=== PATIENT | male | born 1970 | race Caucasian/White ===

== ENCOUNTER → 2020-04-22 13:00 | Outpatient (BNVA) | payer BC, SELFPAY | PROVIDERS: PCP Internal Medicine; Referring Provider Internal Medicine; Visit Provider Internal Medicine Cardiovascular Disease | DX: I48.20 Chronic atrial fibrillation, unspecified (principal); E11.9 Type 2 diabetes mellitus without complications; Z79.01 Long term (current) use of anticoagulants; Z79.4 Long term (current) use of insulin; Z79.899 Other long term (current) drug therapy | CPT/HCPCS: 99212 ==

== ENCOUNTER → 2020-12-08 13:07 | Outpatient (BNVA) | payer BC, SELFPAY | PROVIDERS: PCP Internal Medicine; Referring Provider Internal Medicine; Visit Provider Internal Medicine Cardiovascular Disease | DX: I48.20 Chronic atrial fibrillation, unspecified (principal); R06.02 Shortness of breath | CPT/HCPCS: 93005 ==

== ENCOUNTER → 2021-05-27 14:56 | Outpatient (REF) | payer BC, SELFPAY ==
--- NOTE | 2021-05-27 14:59 | CA_ITS ---
Transthoracic Echocardiogram Patient (Last, First, Middle): Brandon Garcia, Gender: Male Date of : 1970 Age: 51 Procedure Date: 05/27/2021 Procedure Type: Transthoracic Echocardiogram Location: OP Height: 187.96 cm Weight: 127.01 kg BSA: 2.51 m2 Heart Rate: bpm BP: 130 / 80 mmHg Assembler Seat: SHELLIE Bush MD: Joe Stack MD Security Coordinator: Joe Stack MD Symptoms: I48.20 - Chronic atrial fibrillation, unspecified Study Quality: Fair/Contrast ECG Rhythm: Atrial Fibrillation Conclusions: - 1. Normal LV systolic function 2. At least mild left atrial enlargement 3. Limited visualization of cardiac valves with normal cardiac valvular Doppler 4. Normal RV systolic pressure 5. No pericardial effusion Findings Procedure Information Contrast agent, definity, is being given per protocol without apparent complications. Left Ventricle Normal left ventricular cavity size. There is normal left ventricular wall thickness. The left ventricular systolic function is normal. The visually estimated ejection fraction is between 55-60%. There is no evidence of regional wall motion abnormalities. Diastolic function is indeterminate on the basis of available data. Right Ventricle The right ventricle was not well visualized. Atria The left atrium is mildly dilated. There is lipomatous hypertrophy of the interatrial septum. There is no evidence of interatrial shunt. The right atrium was not well visualized. Aortic Valve The aortic valve structure and function is likely normal. There is no aortic valve stenosis. There is no aortic valve regurgitation. Mitral Valve The mitral valve was not well visualized. There is no mitral valve regurgitation. There is no mitral valve stenosis. Pulmonic Valve The pulmonic valve was not well visualized. Tricuspid Valve Likely normal tricuspid valve structure and function. There is trace tricuspid valve regurgitation. The right ventricular systolic pressure is normal. The right ventricular systolic pressure is 19 mmHg. Normal right atrial pressure. Great Vessels All visible segments of the aorta are normal in size. The pulmonary artery was not well visualized. Venous The inferior vena cava is normal in size. Pericardium/Pleural There is no evidence of pericardial effusion. Prior Study Comparison No significant change compared to prior study dated: 08/17/2019. Measurements 2D Linear Measurements IVSd: 1.14 0.6-0.9/0.6-1.0 cm LVIDd: 4.89 3.9-5.3/4.2-5.9 cm LVIDd Index: 1.95 2.4-3.2/2.2-3.1 cm/m2 LVIDs: 3.06 2.0-3.6 cm LVPWd: 1.12 0.7-1.1 cm Ao Root: 4.10 2.1-3.5 cm LA Diam: 4.00 2.7-3.8/3.0-4.0 cm LAIDs Index: 1.59 1.5-2.3 cm/m2 LV Mass: 258.54 67-162/88-224 g LV Mass Index: 103.00 43-95/49-115 g/m2 LVOT Diam: 2.20 3.0+(-)1.3 cm 2D Systolic Function EF 4C: 55.50 >55% EF 2C: 50.20 >55% Aortic Valve AoV Pk Yogi: 1.18 AoV Mn Yogi: 0.85 AoV VTI: 0.23 AoV Pk Grad: 6.00 Aov Mn Grad: 3.00 PRATEEK Cont.VTI: 2.57 LVOT LVOT Pk Yogi: 0.78 LVOT Mn Yogi: 0.50 LVOT VTI: 0.16 LVOT Pk Grad: 2.00 LVOT Mn Grad: 1.00 LVOT Diam: 2.20 LVOT Area: 3.80 Right Ventricle TAPSE (mm): 1.80 TVS' Yogi: 11.00 Tricuspid Valve TR Pk Yogi: 2.02 TR Pk Grad: 16.00 RA Press: 3.00 RVSP: 19.00 Great Vessels Aorta Ao Root-2D: 4.10 2.0-3.7 cm Ao Asc: 3.40 2.1-3.4 cm Ao Arch: 3.30 Updated in Other Vendor System with Status of Final Joe Stack MD electronically signed on 05/28/2021 3:35:14 PM with status of Final
== END ==
LOC: HO.CARD 14:56
PROVIDERS: PCP Internal Medicine; Visit Provider Internal Medicine Cardiovascular Disease
DX: I48.20 Chronic atrial fibrillation, unspecified (principal)
CPT/HCPCS: 93306; Q9957

== ENCOUNTER → 2021-06-28 15:08 | Outpatient (BNVA) | payer BC, SELFPAY | PROVIDERS: PCP Internal Medicine; Visit Provider Internal Medicine Cardiovascular Disease ==

== ENCOUNTER 2022-06-21 10:10 | Outpatient (REF) | payer BC, SELFPAY ==
[2022-06-21 12:08] LABS: Anion Gap 16 (12-20); Blood Urea Nitrogen 18 mg/dL (9-16); Calcium 9.7 mg/dL (8.4-10.2); Carbon Dioxide 21 mmol/L (22-29); Chloride 106 mmol/L (96-108); Estimated Glomerular Filt Rate > 60; Glucose Random 205 mg/dL (60-115); Potassium 4.7 mmol/L (3.3-5.1); Sodium 138 mmol/L (135-145)
[2022-06-21 12:41] LABS: Digoxin 0.2 ng/mL (0.8-2.0)
== END 2022-06-21 10:11 | disposition home or self-care (01) ==
LOC: HO.LAB 10:10
PROVIDERS: Visit Provider Nurse Practitioner Family
DX: I48.20 Chronic atrial fibrillation, unspecified (principal)
CPT/HCPCS: 36415; 80048; 80162

== ENCOUNTER → 2022-06-27 15:10 | Outpatient (BNVA) | payer BC, SELFPAY | PROVIDERS: PCP Internal Medicine; Referring Provider Internal Medicine; Visit Provider Internal Medicine Cardiovascular Disease | DX: I48.20 Chronic atrial fibrillation, unspecified (principal); R06.02 Shortness of breath | CPT/HCPCS: 93005 ==

== ENCOUNTER 2023-06-26 15:03 | Outpatient (REF) | payer BC, SELFPAY ==
[2023-06-26 17:15] LABS: Digoxin 0.4 ng/mL (0.8-2.0)
== END 2023-06-26 15:04 | disposition home or self-care (01) ==
LOC: HO.LAB 15:03
PROVIDERS: Visit Provider Internal Medicine Cardiovascular Disease
DX: I48.20 Chronic atrial fibrillation, unspecified (principal); Z79.899 Other long term (current) drug therapy
CPT/HCPCS: 36415; 80162; 93005

== ENCOUNTER 2023-06-26 15:03 | Outpatient (AMB) | payer BC, SELFPAY ==
--- NOTE | 2023-06-26 15:13 | A.OFFVIS_ITS ---
Intake Vital Signs 06/26/23 15:14 Height 6 ft 2 in Weight 319 lb 10.724 oz BMI 41.0 BP 120/70 Blood Pressure Location Lt brachial Position Sitting Pulse 109 H Intake Visit Reasons: 1Y follow up Intake Note: 1 year follow-up with ekg feeling good c/o fatigue Machine Clipper Required: No Passenger Screener: Passenger Screener Present Accompanied by: Spouse Allergies No Known Allergies Allergy (Verified 04/22/20 13:01) Medication List - Last Reconciled 06/26/23 by Joe Stack MD acetaminophen (Tylenol) 650 mg PO Q6H PRN cholecalciferol (vitamin D3) 50 mcg PO DAILY digoxin 250 mcg PO DAILY insulin aspart U-100 subcut insulin lispro (Humalog U-100 Insulin) 180 units subcut DAILY lisinopril 5 mg PO DAILY metoprolol tartrate 100 mg PO BID 90 days multivitamin 1 tab PO DAILY rivaroxaban (Xarelto) 20 mg PO DAILY rosuvastatin 5 mg PO DAILY tirzepatide (Mounjaro) 2.5 mg subcut QWEEK HPI HPI Comments History of Present Illness Details Brandon comes for follow-up. He has been doing well from cardiac perspective. He is feet and chronic wounds in his feet find any he will but he was laid up for 2 years. He has currently not working. He does have exertional shortness of breath but denies any orthopnea, PND, leg edema, abdominal distension. Denies any lightheadedness, syncope. Denies any rapid heart rate or palpitations. No exertional chest pain. Takes all his medications. No bleeding issues or neurologic events [facility] Medical History Chronic atrial fibrillation Diabetes mellitus COY (obstructive sleep apnea) Family History Father Afib Mother No problems noted. Maternal Grandfather Afib Review of Systems Const Denies chills, Denies fatigue, Denies fever(s), Denies frequent falls, Denies weakness, Denies weight gain and Denies weight loss ENT Denies dizziness Card Denies chest pain, Denies leg edema, Denies lightheadedness, Denies palpitations, Denies dyspnea, Denies dyspnea on exertion, Denies orthopnea and Denies other (loss of consciousness) Resp Denies cough, Denies dyspnea and Denies dyspnea on exertion GI Denies hematochezia and Denies change in stool character Musc Denies abnormal gait, Denies muscle weakness, Denies numbness, Denies radiating pain into limb and Denies tingling Neuro Denies abnormal gait, Denies dizziness, Denies frequent falls, Denies numbness, Denies tingling and Denies weakness Endo Denies fatigue and Denies palpitations Physical Exam Vital Signs: Last Vital Signs Pulse 109 H 06/26/23 15:14 BP 120/70 06/26/23 15:14 BMI result Body Mass Index 41.0 Const General: cooperative, comfortable, no acute distress, alert and awake Nutritional Appearance: obese morbidly obese Orientation/consciousness: patient oriented x3 Limitations: no limitations Neck Neck: Yes trachea midline, Yes supple and Yes no JVD Resp Effort & Inspection: normal respiratory effort Auscultation: clear to auscultation bilaterally Cardio Jugular venous distension: no JVD Palpation: normal PMI Rate: regular rate Rhythm: abnormal rhythm irregularly irregular Heart sounds: S1 normal heart sound present and S2 normal heart sound present GI Auscultation: normal bowel sounds Skin General skin exam: no rashes or lesions noted Neuro General: patient oriented x3 and no focal motor deficits Extrem General: Yes no clubbing, cyanosis or edema Psych Appearance: grossly normal Office Procedures EKG Details: EKG shows atrial fibrillation with rapid ventricular response 109 beats per minute right bundle-branch block, unchanged. 53555-[id number], Complete Assessment & Plan Assessment & Plan (1) Chronic atrial fibrillation: Code(s): I48.20 - Chronic atrial fibrillation, unspecified Plan: Chronic atrial fibrillation with slightly rapid rate today. Although after settling down his heart rate was in the 90s when I examined him. He has no signs or symptoms of heart failure. Complains of exertional shortness of breath which is most likely related to deconditioning from last 2 years of not working out. However will request an echocardiogram to rule out any cardiomyopathic process. No signs or symptoms of heart failure. Continue current dual rate control with digoxin and metoprolol. Will pursue digoxin assay today. Continue full oral anticoagulation, currently on Xarelto 20 mg daily. Semi annual renal function test should be pursued. Continue CPAP therapy. Continue participate in weight loss program regular physical activity. Will follow up in the clinic in 1 year's time, sooner p.r.n.. Thank you for allowing me to partake in his care Coding Level of Care Code Est Pt Level 4 (06095) Diagnoses Chronic atrial fibrillation I48.20 CPT Codes EKG - CPT: 56069-[id number], Complete ([id number])
[2023-06-26 15:14] VITALS: BP 120/70; PULSE 109; BMI 41.0
== END 2023-06-26 15:47 | disposition home or self-care (01) ==
PROVIDERS: Visit Provider Internal Medicine Cardiovascular Disease
DX: I48.20 Chronic atrial fibrillation, unspecified (principal)
CPT/HCPCS: 93010; 99214

== ENCOUNTER → 2023-07-10 15:52 | Outpatient (REF) | payer BC, SELFPAY ==
--- NOTE | 2023-07-10 15:55 | CA_ITS ---
Transthoracic Echocardiogram Patient (Last, First, Middle): Brandon Garcia, Gender: Male Date of : 1970 Age: 53 Procedure Date: 07/10/2023 Procedure Type: Transthoracic Echocardiogram Location: OP Height: 187.96 cm Weight: 140.62 kg BSA: 2.62 m2 Heart Rate: bpm BP: 112 / 64 mmHg Ob Gyn: ROSELIA Referring MD: Joe Stack MD Symptoms: R06.02 - Shortness of breath Study Quality: Technically Difficult, contrast Conclusions: - 1. Normal LV ejection fraction 55-60% with mild LVH 2. Limited visualization cardiac valves with normal cardiac valvular Doppler 3. Normal measured RV systolic pressure Findings Procedure Information Contrast agent, definity, is being given per protocol without apparent complications. Left Ventricle Normal left ventricular size and systolic function. There is mildly increased left ventricular wall thickness. The visually estimated ejection fraction is between 55-60%. Diastolic function is indeterminate on the basis of available data. Right Ventricle The right ventricle was not well visualized. Atria The left atrium is likely dilated. Interatrial shunt cannot be excluded. The right atrium was not well visualized. Aortic Valve The aortic valve structure and function is likely normal. There is no aortic valve stenosis. There is no aortic valve regurgitation. Mitral Valve The mitral valve was not well visualized. There is trace mitral valve regurgitation. There is no mitral valve stenosis. Pulmonic Valve The pulmonic valve was not well visualized. Tricuspid Valve The tricuspid valve was not well visualized. There is trace tricuspid valve regurgitation. The right ventricular systolic pressure is normal. The right ventricular systolic pressure is 24 mmHg. Normal right atrial pressure. Great Vessels The pulmonary artery was not well visualized. Venous The inferior vena cava is normal in size. Pericardium/Pleural The pericardium was not well visualized. Prior Study Comparison No significant change compared to prior study dated: 05/27/2021. delay in reporting due to technical issues Measurements 2D Linear Measurements IVSd: 1.22 0.6-0.9/0.6-1.0 cm LVIDd: 4.75 3.9-5.3/4.2-5.9 cm LVIDd Index: 1.81 2.4-3.2/2.2-3.1 cm/m2 LVIDs: 3.40 2.0-3.6 cm LVPWd: 1.11 0.7-1.1 cm LA Diam: 4.00 2.7-3.8/3.0-4.0 cm LAIDs Index: 1.53 1.5-2.3 cm/m2 LV Mass: 257.63 67-162/88-224 g LV Mass Index: 98.33 43-95/49-115 g/m2 LVOT Diam: 2.20 3.0+(-)1.3 cm 2D Systolic Function EF 4C: 48.40 >55% EF 2C: 65.30 >55% EF BiP: 57.70 >55% Mitral Valve MV Pk E: 1.24 MV Decel Time: 210.00 E'Lateral: 11.20 E'Medial: 8.88 E/E' Med: 14.00 E/E' Lat: 11.10 PHT: 61.00 MVA PHT: 3.61 Decel Jones: 5.91 Aortic Valve AoV Pk Yogi: 1.01 AoV Pk Grad: 4.00 LVOT LVOT Pk Yogi: 0.91 LVOT Pk Grad: 3.00 LVOT Diam: 2.20 LVOT Area: 3.80 Diastolic Function MV Pk E: 1.24 E'Medial: 8.88 E/E' Med: 14.00 E' Laterial: 11.20 E/E' Lat: 11.10 Right Ventricle TAPSE (mm): 15.10 TVS' Yogi: 8.40 Tricuspid Valve TR Pk Yogi: 2.29 TR Pk Grad: 21.00 RA Press: 3.00 RVSP: 24.00 Great Vessels Aorta Sinus of Valsalva: 4.03 2.0-3.[address] [place]: 3.02 1.7-3.4 cm Ao Asc: 3.50 2.1-3.4 cm Updated in Other Vendor System with Status of Final Joe Stack MD electronically signed on 07/13/2023 1:46:49 PM with status of Final
== END ==
LOC: HO.CARD 15:52
PROVIDERS: PCP Internal Medicine; Visit Provider Internal Medicine Cardiovascular Disease
DX: R06.02 Shortness of breath (principal)
CPT/HCPCS: 93306; Q9957

== ENCOUNTER → 2023-07-10 15:55 | Outpatient (BNV) | payer BC, SELFPAY | PROVIDERS: PCP Internal Medicine; Visit Provider Internal Medicine Cardiovascular Disease | DX: I48.20 Chronic atrial fibrillation, unspecified (principal); R94.31 Abnormal electrocardiogram [ECG] [EKG] | CPT/HCPCS: 93306 ==

== ENCOUNTER 2024-04-04 10:26 | Outpatient (REF) | payer BC, SELFPAY ==
[2024-04-04 14:03] LABS: Hematocrit 48.1 % (42.0-52.0); Hemoglobin 15.8 g/dl (14.0-18.0); Mean Corpuscular HGB Conc 32.8 g/dl (31.0-36.0); Mean Corpuscular Hemoglobin 30.4 pg (27.0-33.0); Mean Corpuscular Volume 92.7 fL (80.0-98.0); Mean Platelet Volume 10.4 fL (9.4-12.4); Platelet Count 219 X10*3/uL (160-400); Red Blood Count 5.19 X10*6/uL (4.60-5.80); Red Cell Distribution Width 13.1 % (11.0-16.0); White Blood Count 8.4 X10*3/uL (4.8-10.8)
[2024-04-04 14:13] LABS: Digoxin 0.2 ng/mL (0.8-2.0)
[2024-04-04 14:27] LABS: Anion Gap 10 (12-20); Blood Urea Nitrogen 14 mg/dL (9-16); Calcium 9.2 mg/dL (8.4-10.2); Carbon Dioxide 24 mmol/L (22-29); Chloride 110 mmol/L (96-108); Estimated Glomerular Filt Rate > 60; Glucose Random 97 mg/dL (60-115); Sodium 140 mmol/L (135-145)
== END 2024-04-04 10:27 | disposition home or self-care (01) ==
LOC: HO.HMGCLDS 10:26
PROVIDERS: PCP Internal Medicine; Visit Provider Internal Medicine Cardiovascular Disease
DX: I48.20 Chronic atrial fibrillation, unspecified (principal)
CPT/HCPCS: 36415; 80048; 80162; 85027

== ENCOUNTER → 2024-06-10 13:48 | Outpatient (REF) | payer BC, SELFPAY ==
--- NOTE | 2024-06-10 14:11 | CA_ITS ---
Transthoracic Echocardiogram Patient (Last, First, Middle): Brandon Garcia, Gender: Male Date of : 1970 Age: 54 Procedure Date: 06/10/2024 Procedure Type: Transthoracic Echocardiogram Location: OP Height: 187.96 cm Weight: 136.08 kg BSA: 2.58 m2 Heart Rate: 107 bpm BP: 105 / 65 mmHg Aircraft Machinist: MORE Referring MD: Joe Stack MD Appeals Referee: Joe Stack MD Symptoms: I48.20 - Chronic atrial fibrillation, unspecified Study Quality: Technically Difficult w/Contrast ECG Rhythm: Atrial Fibrillation Conclusions: - 1. Technically limited study 2. Normal LV ejection fraction 55-60% 3. Mildly dilated ascending aorta 3.7 cm 4. Cardiac valvular Dopplers grossly within normal limits Findings Procedure Information Contrast agent, definity, is being given per protocol without apparent complications. Left Ventricle Normal left ventricular size, thickness, and systolic function. The visually estimated ejection fraction is between 55-60%. Diastolic function is indeterminate on the basis of available data. Right Ventricle The right ventricle was not well visualized. There is low normal right ventricular systolic function. Atria The left atrium was not well visualized. Interatrial shunt cannot be excluded. The right atrium was not well visualized. Aortic Valve The aortic valve was not well visualized. There is no aortic valve stenosis. There is no aortic valve regurgitation. Mitral Valve The mitral valve was not well visualized. There is trace mitral valve regurgitation. There is no mitral valve stenosis. Pulmonic Valve The pulmonic valve was not well visualized. Tricuspid Valve The tricuspid valve was not well visualized. Tricuspid regurgitation envelope is inadequate for calculation of right ventricular systolic pressure. Normal right atrial pressure. Great Vessels The aorta was not well visualized. The pulmonary artery was not well visualized. There is mild dilatation of the ascending aorta measuring 3.70 cm. Venous The inferior vena cava is normal in size and collapses greater than 50% with inspiration. Pericardium/Pleural The pericardium was not well visualized. Prior Study Comparison No significant change compared to prior study dated: 07/10/2023. Measurements 2D Linear Measurements IVSd: 1.09 0.6-0.9/0.6-1.0 cm LVIDd: 4.47 3.9-5.3/4.2-5.9 cm LVIDd Index: 1.73 2.4-3.2/2.2-3.1 cm/m2 LVIDs: 3.32 2.0-3.6 cm LVPWd: 1.00 0.7-1.1 cm LA Diam: 4.10 2.7-3.8/3.0-4.0 cm LAIDs Index: 1.59 1.5-2.3 cm/m2 LV Mass: 200.71 67-162/88-224 g LV Mass Index: 77.79 43-95/49-115 g/m2 LVOT Diam: 2.10 3.0+(-)1.3 cm Mitral Valve MV Pk E: 1.04 MV Decel Time: 220.00 E'Lateral: 9.43 E'Medial: 8.52 E/E' Med: 12.20 E/E' Lat: 11.00 PHT: 64.00 MVA PHT: 3.44 Decel [place]: 4.73 Aortic Valve AoV Pk Yogi: 0.98 AoV Mn Yogi: 0.72 AoV VTI: 0.17 AoV Pk Grad: 4.00 Aov Mn Grad: 2.00 PRATEEK Cont.VTI: 2.84 LVOT LVOT Pk Yogi: 0.89 LVOT Mn Yogi: 0.64 LVOT VTI: 0.14 LVOT Pk Grad: 3.00 LVOT Mn Grad: 2.00 LVOT Diam: 2.10 LVOT Area: 3.46 Diastolic Function MV Pk E: 1.04 E'Medial: 8.52 E/E' Med: 12.20 E' Laterial: 9.43 E/E' Lat: 11.00 Right Ventricle TAPSE (mm): 15.90 TVS' Yogi: 11.40 Tricuspid Valve RA Press: 3.00 Great Vessels Aorta Sinus of Valsalva: 3.90 2.0-3.5 cm Ao Asc: 3.70 2.1-3.4 cm Ao Arch: 3.20 Pulmonary Valve PV Pk Yogi: 0.90 Peak PV Grad: 3.00 Updated in Other Vendor System with Status of Final Joe Stack MD electronically signed on 06/11/2024 12:20:32 PM with status of Final
== END ==
LOC: HO.CARD 13:48
PROVIDERS: Visit Provider Internal Medicine Cardiovascular Disease
DX: I48.20 Chronic atrial fibrillation, unspecified (principal); R06.02 Shortness of breath; G47.33 Obstructive sleep apnea (adult) (pediatric)
CPT/HCPCS: 93306; Q9957

== ENCOUNTER → 2024-06-10 14:11 | Outpatient (BNV) | payer BC, SELFPAY | PROVIDERS: Visit Provider Internal Medicine Cardiovascular Disease | DX: I48.20 Chronic atrial fibrillation, unspecified (principal) | CPT/HCPCS: 93306 ==

== ENCOUNTER 2024-06-24 15:01 | Outpatient (AMB) | payer BC, SELFPAY ==
--- NOTE | 2024-06-24 15:13 | A.OFFVIS_ITS ---
Vital Signs 06/24/24 15:14 Height 6 ft 2 in Weight 306 lb 7.08 oz BMI 39.3 BP 120/74 Blood Pressure Location Lt brachial Position Sitting Pulse 98 Intake Visit Reasons: 1 yr fu echo Intake Note: 1 year follow-up with ekg after echo Survey Project Manager Required: No Residential Care Facility Manager: Residential Care Facility Manager Present Accompanied by: Spouse Allergies No Known Allergies Allergy (Verified 04/22/20 13:01) Medication List - Last Reconciled 06/24/24 by Joe Stack MD acetaminophen (Tylenol) 650 mg PO Q6H PRN cholecalciferol (vitamin D3) 50 mcg PO DAILY digoxin 250 mcg PO DAILY insulin aspart U-100 subcut insulin lispro (Humalog U-100 Insulin) 180 units subcut DAILY lisinopril 5 mg PO DAILY metoprolol tartrate 100 mg PO BID multivitamin 1 tab PO DAILY rivaroxaban (Xarelto) 20 mg PO QPM rosuvastatin 5 mg PO DAILY tirzepatide (Mounjaro) 12.5 mg subcut QWEEK HPI Comments Details: Brandno comes for follow-up. Patient was doing well from cardiac perspective. Has exertional shortness of breath but this is unchanged. Denies any orthopnea, PND. No palpitations no lightheadedness, syncope. Encouraged to exercise more. Has not had any wound issues recently. Diabetes still remains difficult control. Uses CPAP regularly. No exertional chest pain. No bleeding issues or neurologic events. Most recent echocardiogram showed preserved LV ejection fraction with mildly dilated ascending aorta. [facility] Medical History COY (obstructive sleep apnea) Chronic atrial fibrillation Diabetes mellitus Family History Father Afib Mother No problems noted. Maternal Grandfather Afib Review of Systems Const Denies chills, Denies fatigue, Denies fever(s), Denies frequent falls, Denies weakness, Denies weight gain and Denies weight loss ENT Denies dizziness Card Denies chest pain, Denies leg edema, Denies lightheadedness, Denies palpitations, Denies dyspnea, Denies dyspnea on exertion, Denies orthopnea and Denies other (loss of consciousness) Resp Denies cough, Denies dyspnea and Denies dyspnea on exertion GI Denies hematochezia and Denies change in stool character Musc Denies abnormal gait, Denies muscle weakness, Denies numbness, Denies radiating pain into limb and Denies tingling Neuro Denies abnormal gait, Denies dizziness, Denies frequent falls, Denies numbness, Denies tingling and Denies weakness Endo Denies fatigue and Denies palpitations Physical Exam Vital Signs: Last Vital Signs Pulse 98 06/24/24 15:14 BP 120/74 06/24/24 15:14 BMI result Body Mass Index 39.3 Const General: cooperative, comfortable, no acute distress, alert and awake Nutritional Appearance: obese morbidly obese Orientation/consciousness: patient oriented x3 Limitations: no limitations Neck Neck: Yes trachea midline, Yes supple and Yes no JVD Resp Effort & Inspection: normal respiratory effort Auscultation: clear to auscultation bilaterally Cardio Jugular venous distension: no JVD Palpation: normal PMI Rate: regular rate Rhythm: abnormal rhythm irregularly irregular Heart sounds: S1 normal heart sound present and S2 normal heart sound present GI Auscultation: normal bowel sounds Skin General skin exam: no rashes or lesions noted Neuro General: patient oriented x3 and no focal motor deficits Extrem General: Yes no clubbing, cyanosis or edema Psych Appearance: grossly normal Office Procedures EKG Details: EKG shows atrial fibrillation with right bundle-branch block 33033-[id number], Complete Assessment & Plan Assessment & Plan (1) Chronic atrial fibrillation: Code(s): I48.20 - Chronic atrial fibrillation, unspecified Category: Medical Plan: Chronic atrial fibrillation has failed rhythm control approach despite multiple attempts at cardioversion and antiarrhythmic drugs. Patient has done well with rate control approach without any signs of cardiac decompensation. Remains at risk for congestive heart failure development. Recommend to continue aggressive risk factor modification. Continue CPAP therapy. Continue aggressive weight loss program and various strategies were discussed including drug related weight loss program. Continue aggressive management diabetes goal hemoglobin A1c less than 7%. Advised to maintain aggressive exercise program. Continue full oral anticoagulation, currently on Xarelto 20 mg daily. Semi annual renal function test should be pursued. Continue dual rate control with metoprolol and digoxin. Semi annual digoxin assay should be pursued. Goal LDL less than 70 mg/dL. Follow up in the clinic in 1 year's time, sooner p.r.n.. Thank you for allowing me to partake in his care Orders: Orders CA echo transthoracic complete 1 Year I48.20 - Chronic atrial fibrillation, unspecified Coding Level of Care Code Est Pt Level 4 (05835) Complex EM visit Add On G2211 Diagnoses Chronic atrial fibrillation I48.20 CPT Codes EKG - CPT: 87981-[id number], Complete ([id number])
[2024-06-24 15:14] VITALS: BP 120/74; PULSE 98; BMI 39.3
--- OUTSIDE RECORDS SUMMARY | 2024-06-24 19:00 | XMS_ITS | Continuity of Care Document ---
Author Organization [facility] Address [address] [place] [address] Care Team Providers Care Campus Recruiter Name Role Phone NORA GLASS Primary Care Provider [phone] Assessment No assessment recorded. Plan of Treatment Reminders Order Date Submit Date Provider Last Modified By Organization Details Last Modified Time Details Appointments RECHECK 15 2024 09:00A M Armando ed PA-C Not available Not available Not available Lab None recorded . Referral None recorded . Procedures None recorded . Surgeries None recorded . Imaging None recorded . Medication Orders None recorded . Patient TargetsNo targets recorded. Patient InstructionsNo instructions recorded. Reason for Referral None Reported. Procedures Surgical History Date Name Laterality Status Provider Name and Address Organization Details Recorded Time 4 Sports Shoulder 4&1 w/US completed Armando Goff PA-C [address] [facility] [address] [place] [address], [address], [facility] 05/30/2024 11:17:54 4 Sports Shoulder 4&1 w/US completed Armando Goff PA-C [address], [place], [address], [facility] 03/01/2024 10:30:31 4 Sports Shoulder 4&1 w/US completed Armando Goff PA-C [address], [place], [address], [facility] 12/05/2023 15:54:02 Imaging Results None recorded. Procedure Notes None recorded. Medical Equipment None Reported. Allergies No known drug allergies Medications Name Sig Start Date Stop Date Status Note LastModified by Organization Details LastModified Time cyclobenzap rine 10 mg tablet TAKE ONE TABLET BY MOUTH THREE TIMES A DAY active Not Available Not Available No t Available metoprolol tartrate 100 mg tablet TAKE 1 TABLET BY MOUTH TWICE A DAY active Not Available Not Available No t Available digoxin 250 mcg (0.25 mg) tablet TAKE 1 TABLET BY MOUTH EVERY DAY active Not Available Not Available No t Available peg-electro lyte solution 420 gram oral solution USE DIRECTED BY OFFICE 03/01 completed Not Available Not Available Not Available Humalog U-100 Insulin 100 unit/mL subcutaneou s solution INJECT 200 UNITS DIRECTED DAILY active Not Available Not Available No t Available lisinopril 5 mg tablet TAKE 1 TABLET BY MOUTH EVERY DAY active Not Available Not Available No t Available mupirocin 2 % topical ointment active Not Available Not Available Not Available Novolog U-100 Insulin aspart 100 unit/mL subcutaneou s solution INJECT 200 UNITS DIRECTED DAILY*OFF ICE FILING RANJEET GREEN WILL ONLY PAY 11 VIALS (1.3339 DOSE/DAY) active Not Available Not Available No t Available celecoxib 100 mg capsule TAKE 1 CAPSULE BY MOUTH EVERY DAY NEEDED FOR MODERATE PAIN active Not Available Not Available No t Available metformin ER 500 mg tablet,exte nded release 24 hr TAKE 1 TABLET BY MOUTH DAILY FOR 7-10 DAYS, THEN INCREASE BY 1 TABLET WEEKLY UNTIL AT 4 TABS/DAY 02/28 completed Not Available Not Available Not Available rosuvastati n 5 mg tablet TAKE 1 TABLET BY MOUTH EVERY DAY active Not Available Not Available No t Available Sure Comfort Insulin Syringe 0.5 mL 31 gauge x 5/16 USE WITH INSULIN FOUR TIMES A DAY active Not Available Not Available No t Available Xarelto 20 mg tablet TAKE 1 TABLET BY MOUTH EVERY EVENING active Not Available Not Available No t Available Dexcom G6 Sensor device PLACE AND USE 1 SENSOR EVERY 10 DAYS DIRECTED TO READ BLOOD GLUCOSE LEVELS active Not Available Not Available No t Available Dexcom G6 Transmitter device USE DIRECTED CHANGE TRANSMITT ER EVERY 3 MONTHS active Not Available Not Available No t Available Baqsimi 3 mg/actuatio n nasal spray USE 1 SPRAY IN 1 NOSTRIL ONCE NEEDED FOR SEVERE HYPOGLYCE ISABEL active Not Available Not Available No t Available Ozempic 1 mg/dose (4 mg/3 mL) subcutaneou s pen injector INJECT 1 MG INTO THE SKIN EVERY 7 DAYS active Not Available Not Available No t Available Omnipod 5 G6 Pods (Gen 5) subcutaneou s cartridge USE 1 POD EVERY 48 HOURS DIRECTED 02/28 completed Not Available Not Available Not Available Omnipod 5 G6 Intro Kit (Gen 5) subcutaneou s cartridge with controller USE DIRECTED active Not Available Not Available No t Available Mounjaro 7.5 mg/0.5 mL subcutaneou s pen injector INJECT 7.5 MG SUBCUTANE OUSLY EVERY 7 DAYS active Not Available Not Available No t Available Mounjaro 5 mg/0.5 mL subcutaneou s pen injector active Not Available Not Available Not Available Mounjaro 10 mg/0.5 mL subcutaneou s pen injector active Not Available Not Available Not Available Mounjaro 12.5 mg/0.5 mL subcutaneou s pen injector INJECT 0.5 ML (12.5 MG TOTAL) UNDER THE SKIN EVERY 7 (SEVEN) DAYS. active Not Available Not Available No t Available Mounjaro 2.5 mg/0.5 mL subcutaneou s pen injector Inject by subcutane ous route. active Not Available Not Available No t Available Ozempic 0.25 mg or 0.5 mg (2 mg/3 mL) subcutaneou s pen injector INJECT 0.5 MG INTO THE SKIN EVERY 7 DAYS. 02/28 completed Not Available Not Available Not Available Omnipod 5 G6-G7 Pods (Gen 5) subcutaneou s cartridge USE 1 POD EVERY 48 HOURS DIRECTED active Not Available Not Available No t Available Vitals Date Recorded Body height Body mass index (BMI) Body weight Provider Name and Address Organization Details Last Updated DateTime 05/30/2024 187.96 cm 38.5 kg/m2 143709.71 g Reina Mccarthy [place] - [place] [facility] 05/30/2024 11:05:08 Social History None recorded. Functional Status None recorded. Mental Status None recorded. Family History Nothing Reported. Medical History Condition Response Arrhythmia Y Diabetes Y Past Encounters Encounter ID Performer Location Encounter Start Date Encounter Closed Date Diagnosis/Indication Diagnosis SNOMED-CT Code Diagnosis ICD10 Code Diagnosis Note [id number] [facility] [address] [place] [address] 05/30/2024 11:00:17 05/30/2024 11:18:20 Inflammation of joint of shoulder region 893939571 M19.019 Health Concerns Section Related Observation LastModified by Organization Juan C ls LastModified Time None Recorded Concern Status LastModified by Organization Details LastModified Time None Recorded Payers Encounter Date Sequence Insurance Name Policy Number Policy Bajwa Covered Member ID Bajwa Member ID Guarantor Name 05/30/2024 1 [place] [id number] Tammy Higgins Radha [id number] Brandon Braun Radha Notes Date Note Type Note Provider Name and Address Organization Details Recorded Time 05/30/2024 text/html I am seeing the patient today under the supervision of Dr. Nixon who was available but who did not see the patient. REASON FOR VISIT Patient comes to the office with known glenohumeral joint arthritis of the {{left Right* Bila teral}} shoulder. The patient has done well with conservative management for their shoulder pain. Recently reports increasing discomfort over the past several weeks without injury. Pain is generalized about the shoulder and discomfort is noted at night. PAST MEDICAL/SURGICAL HISTORY Current medications per intake sheet. PHYSICAL FINDINGS The patient is well appearing, in no apparent distress, alert and oriented to person, place and time. Gait is symmetric. No significant swelling, warmth or erythema about either shoulder. There is mild tenderness to palpation about the shoulder. Active range of motion of the shoulder is {{full* restricted }} with moderate pain through mid range manipulations. 4/5 strength of the shoulder. Good stability of the shoulder. Peripheral, vascular, lymphatic examination, skin, neurologic coordination, reflexes, sensation are within normal limits. ASSESSMENT Right glenohumeral joint arthritis PLAN The patient has done well with conservative management in regards to the shoulder. Continued conservative management recommended. Moderating activities with the upper extremity recommended also. See procedure note. Follow up as needed. Armando Goff PA-C [address] [facility] [address], [place], [address], [facility] - [place] [facility] 05/30/2024 11:18:18
--- OUTSIDE RECORDS SUMMARY | 2024-06-24 19:00 | XMS_ITS | Data Portability ---
Author Organization [facility], [facility] Address [address] [place] [address] Care Team Providers Care Curator Medical Museum Name Role Phone QUAN NORA Primary Care Provider [phone] Assessment No assessment recorded. Plan of Treatment Reminders Order Date Submit Date Provider Last Modified By Organization Details Last Modified Time Details Appointments RECHECK 15 2024 09:00A M Armando de PA-C Not available Not available Not available Lab None recorded . Referral None recorded . Procedures None recorded . Surgeries None recorded . Imaging None recorded . Medication Orders None recorded . Patient TargetsNo targets recorded. Patient InstructionsNo instructions recorded. Reason for Referral None Reported. Results Created Date Observation Date Name Description Value Unit Range Abnormal Flag Note LastModifiedBy Organization Detail LastModifiedTime 02/09/2005/14/2023 cindy porter/dequan foote tic resul t No observ ation record ed. [email or web address] Not Available 01/12 20:31:24 Result Notes None recorded. Procedures Surgical History Date Name Laterality Status Provider Name and Address Organization Details Recorded Time 4 Sports Shoulder 4&1 w/US completed Armando Goff PA-C [address], [place], [address], [place] [facility] 05/30/2024 11:17:54 4 Sports Shoulder 4&1 w/US completed Armando Goff PA-C [address], [place], [address], [place] [facility] 03/01/2024 10:30:31 4 Sports Shoulder 4&1 w/US completed Armando Goff PA-C [address] [facility] [address], [place], [address], [place] [facility] [place] [facility] 12/05/2023 15:54:02 Imaging Results Imaging Date Name Status LastModified by Organiz ation Details LastModified Time 05/14/2023 imaging/diag nostic result completed [email or web address] Information not available 02/09/2024 20:31:24 Procedure Notes None recorded. Medical Equipment None [...] and Address Organization Details Last Updated DateTime 12/05/2023 187.96 cm 38.5 kg/m2 278526.71 g URIEL LEE [facility] 12/05/2023 15:43:23 Date Recorded Body height Body mass index (BMI) Body weight Provider Name and Address Organization Details Last Updated DateTime 03/01/2024 187.96 cm 38.5 kg/m2 237299.71 g Reina Mccarthy [facility] 03/01/2024 10:14:46 Date Recorded Body height Body mass index (BMI) Body weight Provider Name and Address Organization Details Last Updated DateTime 05/30/2024 187.96 cm 38.5 kg/m2 367537.71 g Reina Mccarthy [facility] 05/30/2024 11:05:08 Social History None recorded. Functional Status None recorded. Mental Status None recorded. Family History Nothing Reported. Medical History Condition Response Arrhythmia Y Diabetes Y Past Encounters Encounter ID Performer Location Encounter Start Date Encounter Closed Date Diagnosis/Indication Diagnosis SNOMED-CT Code Diagnosis ICD10 Code Diagnosis Note [id number] [facility] 2[address] [place] [address] 12/05/2023 15:23:55 01/09/2024 14:14:08 Osteoarthritis of right glenohumeral joint 4908200839 964512 M19.338 [id number] [facility] [address] [place] [address] 03/01/2024 09:53:10 03/21/2024 13:15:39 Osteoarthritis of right glenohumeral joint 7724925780 463015 M19.825 [id number] [facility] [address] [place] [address] 05/30/2024 11:00:17 05/30/2024 11:18:20 Inflammation of joint of shoulder region 761023630 M19.019 Health Concerns Section Related Observation LastModified by Organization Detai ls LastModified Time None Recorded Concern Status LastModified by Organization Details LastModified Time None Recorded Advance Directives Directive None Recorded Payers Encounter Date Sequence Insurance Name Policy Number Policy Bajwa Covered Member ID Bajwa Member ID Guarantor Name 12/05/2023 1 [place] [id number] Tammy A Radha [id number] Brandon N Radha 03/01/2024 1 [place] [id number] Tammy A Radha [id number] Brandon N Radha 05/30/2024 1 [place] [id number] Tammy A Radha [id number] Brandon N Radha Notes Date Note Type Note Provider Name and Address Organization Details Recorded Time 12/05/2023 text/html I am seeing the patient today under the supervision of who was available but who did not [...] reflexes, sensation are within normal limits. ASSESSMENT glenohumeral joint arthritis PLAN The patient has done well with conservative management in regards to the shoulder. Continued conservative management recommended. Moderating activities with the upper extremity recommended also. See procedure note. Follow up as needed. Armando Goff PA-C [address], [place], [address], [facility] [place] [facility] 12/05/2023 15:54:42 03/01/2024 text/html I am seeing the patient today under the supervision of who was available but who did not [...] reflexes, sensation are within normal limits. ASSESSMENT glenohumeral joint arthritis PLAN The patient has done well with conservative management in regards to the shoulder. Continued conservative management recommended. Moderating activities with the upper extremity recommended also. See procedure note. Follow up as needed. Armando Goff PA-C [address] [facility] [address], [place], [address], [facility] 03/01/2024 10:30:57 05/30/2024 text/html I am seeing the patient [...] up as needed. Armando Goff PA-C [address] [facility] [address], [place], [address], [facility] [place] [facility] 05/30/2024 11:18:18
== END 2024-06-24 15:49 | disposition home or self-care (01) ==
PROVIDERS: Visit Provider Internal Medicine Cardiovascular Disease
DX: I48.20 Chronic atrial fibrillation, unspecified (principal)
CPT/HCPCS: 93010; 99214

== ENCOUNTER → 2024-06-24 15:01 | Outpatient (BNVA) | payer BC, SELFPAY | PROVIDERS: Visit Provider Internal Medicine Cardiovascular Disease | DX: I48.20 Chronic atrial fibrillation, unspecified (principal); Z79.01 Long term (current) use of anticoagulants | CPT/HCPCS: 93005 ==

== ENCOUNTER → 2025-06-11 09:57 | Outpatient (REF) | payer BC, SELFPAY ==
--- NOTE | 2025-06-11 09:59 | CA_ITS ---
Transthoracic Echocardiogram Patient (Last, First, Middle): Brandon Garcia, Gender: M Date of : 1970 Age: 55 Procedure Date: 06/11/2025 Procedure Type: Transthoracic Echocardiogram Location: OP Height: 187.96 cm Weight: 138.8 kg BSA: 2.60 m2 Heart Rate: 75 bpm BP: 120 / 74 mmHg Turn Out: JANENE Referring MD: Joe Stack MD Symptoms: I48.20 - Chronic atrial fibrillation, unspecified Study Quality: Adequate w contrast ECG Rhythm: Atrial Fibrillation/flutter Conclusions: - The left ventricular systolic function is low normal. The visually estimated ejection fraction is between 50-55%. - No obvious valvular pathology seen on this study. Findings Procedure Information Contrast agent, definity, is being given per protocol without apparent complications. Left Ventricle Normal left ventricular cavity size. There is normal left ventricular wall thickness. The left ventricular systolic function is low normal. The visually estimated ejection fraction is between 50-55%. There is no evidence of regional wall motion abnormalities. Diastolic function is indeterminate on the basis of available data. Right Ventricle The right ventricle was not well visualized. Atria Both atria are normal in size. Aortic Valve There is a normal trileaflet aortic valve. There is no aortic valve stenosis. There is no aortic valve regurgitation. Mitral Valve There is mild mitral annular calcification. There is no mitral valve regurgitation. There is no mitral valve stenosis. Pulmonic Valve The pulmonic valve is likely normal. Tricuspid Valve There is no tricuspid valve regurgitation. Tricuspid regurgitation envelope is inadequate for calculation of right ventricular systolic pressure. Great Vessels The asc aorta and aortic arch are normal in size. Venous The inferior vena cava is normal in size and collapses greater than 50% with inspiration. Pericardium/Pleural There is no evidence of pericardial effusion. Prior Study Comparison No significant change compared to prior study dated: 06/10/2024. Recommendations, Care & Conclusions No obvious valvular pathology seen on this study. Measurements 2D Linear Measurements IVSd: 0.68 0.6-0.9/0.6-1.0 cm LVIDd: 5.27 3.9-5.3/4.2-5.9 cm LVIDd Index: 2.03 2.4-3.2/2.2-3.1 cm/m2 LVIDs: 4.16 2.0-3.6 cm LVPWd: 0.76 0.7-1.1 cm LA Diam: 4.00 2.7-3.8/3.0-4.0 cm LAIDs Index: 1.54 1.5-2.3 cm/m2 LV Mass: 162.40 67-162/88-224 g LV Mass Index: 62.46 43-95/49-115 g/m2 LVOT Diam: 2.20 3.0+(-)1.3 cm 2D Systolic Function EF 4C: 66.50 >55% EF 2C: 60.20 >55% EF BiP: 61.90 >55% Mitral Valve MV Pk E: 1.23 Aortic Valve AoV Pk Yogi: 0.96 AoV Pk Grad: 4.00 PRATEEK: 3.46 LVOT LVOT Pk Yogi: 0.88 LVOT Mn Yogi: 0.57 LVOT VTI: 0.17 LVOT Pk Grad: 3.00 LVOT Mn Grad: 1.00 LVOT Diam: 2.20 LVOT Area: 3.80 Diastolic Function MV Pk E: 1.23 Tricuspid Valve RA Press: 3.00 Great Vessels Aorta Sinus of Valsalva: 3.60 2.0-3.5 cm Ao Asc: 3.70 2.1-3.4 cm Ao Arch: 3.10 Pulmonary Valve PV Pk Yogi: 0.83 Peak PV Grad: 3.00 Updated in Other Vendor System with Status of Final George Sullivan MD electronically signed on 06/13/2025 12:07:04 PM with status of Final
--- OUTSIDE RECORDS SUMMARY | 2025-06-11 10:48 | XMS_ITS | Clinical Summary ---
Author Organization [address] Address [address] [place] [address] Phone Care Team Providers Care Metallurgical Lab Technician Name Role Phone Davey Navarro MD Primary Care Provider Allergies No known active allergies Medications Dexcom G6 Transmitter device See administration instructions. USE DIRECTED CHANGE TRANSMITTER EVERY 3 MONTHS 01/30/20 24 Active Baqsimi 3 mg/actuation nasal spray Administer 1 Dose into affected nostril(s) if needed. 1 Dose by Nasal route as needed for Other (sevre hypoglycemia). 10/03/19 24 Active Xarelto 20 mg tablet Take 1 tablet (20 mg total) by mouth 1 (one) time each day. 08/22/19 22 Active metoprolol tartrate (LOPRESSOR) 100 mg tablet Take 1 tablet (100 mg total) by mouth 2 (two) times a day. Active digoxin (LANOXIN) 250 mcg (0.25 mg) tablet Take 1 tablet (250 mcg total) by mouth 1 (one) time each day. Active cholecalciferol (VITAMIN D-3) 25 mcg (1,000 unit) tablet Take by mouth 1 (one) time each day. Active multivit-mineral s/folic acid (CENTRUM ADULTS ORAL) Take by mouth. Activ e FREESTYLE LANCETS MISC 1 each by Other route 4 (four) times a day. 09/10/19 17 Active insulin syringe-needle U-100 1/2 mL 31 gauge x 1/4 syringe Insulin Syringe/Needle U-500 (BD Insulin Syringe U-500) 31G X 6MM 0.5 ML Misc Inject 1 Each as directed daily. Active Sure Comfort Insulin Syringe 0.5 mL 31 gauge x 5/16 syringeIndicatio ns:Type 2 diabetes mellitus with diabetic microalbuminuria , with long-term current use of insulin [place] [place] [facility] V28) USE WITH INSULIN FOUR TIMES A DAY 100 each 11/19/19 25 Active blood-glucose sensor (Dexcom G7 Sensor) device Change sensor every 10 days 3 each 02/05/20 25 Active Omnipod 5 G6-G7 Pods, Gen 5, cartridge USE 1 POD EVERY 48 HOURS DIRECTED 15 each 02/25/20 25 Active lisinopriL (PRINIVIL,ZESTRI L) 5 mg tabletIndication s:Type 2 diabetes mellitus with other diabetic kidney complication ([facility] V24, [facility] V28) TAKE 1 TABLET BY MOUTH EVERY DAY 90 tablet 3 04/17/20 25 Active tirzepatide (Mounjaro) 15 mg/0.5 mL injectionIndicat ions:Diabetes mellitus type 2, with complication, on long term care administrator insulin pump [place] [place], [facility] V28) Inject 0.5 mL (15 mg total) under the skin every 7 (seven) days. 6 mL 3 06/02/20 25 Active rosuvastatin (CRESTOR) 5 mg tablet Take 1 tablet (5 mg total) by mouth 1 (one) time each day. 90 each 3 06/02/20 25 Active insulin aspart (NovoLOG U-100 Insulin aspart) 100 unit/mL injectionIndicat ions:Diabetes mellitus type 2, with complication, on penitentiary insulin pump ([facility] [place], [facility] V28) Inject 200 Units as directed. Inject 200 Units as directed daily. Dispense 18 vials. Dispense brand name. No substitution please dispense 90-day supply. He is using about 18 vials every 90 days. Patient on insulin pump. Max daily dose 200 units 180 mL 3 06/02/20 25 Active rosuvastatin (CRESTOR) 5 mg tablet Take 1 tablet (5 mg total) by mouth 1 (one) time each day. 11/10/19 23 025 Discontin ued(Reord er) tirzepatide (Mounjaro) 15 mg/0.5 mL injectionIndicat ions:Type 2 diabetes mellitus with diabetic nephropathy, unspecified whether penitentiary insulin use [place] [place], [facility] V28) Inject 0.5 mL (15 mg total) under the skin every 7 (seven) days. 6 mL 3 07/11/19 25 025 Discontin ued(Reord er) insulin aspart (NovoLOG U-100 Insulin aspart) 100 unit/mL injectionIndicat ions:DM type 2 causing eye disease ([facility] V24, [facility] V28) Inject 200 Units as directed. Inject 200 Units as directed daily. Dispense 18 vials. Dispense brand name. No substitution please dispense 90-day supply. He is using about 18 vials every 90 days. Patient on insulin pump. 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 Jefferson Hyperlipidemia 03/09/2007 Encounters Date Type Department Care Team Description 06/02/2025 4:30 PM EST Office Visit Endocrinology - [place] [id number] [place] [address] Toña Mariscal PA Diabetes mellitus type 2, with complication, on long term care administrator insulin pump ([facility] V24, [facility] V28) (Primary Dx); Microalbuminuria; Hyperlipidemia, unspecified hyperlipidemia type from Last 3 Months Immunizations Immunization Administration Dates Next Due Influenza trivalent, recombi nant, 0.5mL, preservative free (Flublok) 9yo and older 02/24/2025 Influenza trivalent, with pr eservative (Fluzone; Afluria) 6mo and older 02/23/2024,03/04/2023,03/13/2022 Influenza, Unspecified 03/12/2021,2020,02/10/2019,03/04,03/05/2017,03/13/2016,03/31/2015 ,03/17/2014,03/14/2013,05/21/2012,02/11,02/24/2010,05/13/2009, 9,04/08/2008,03/09/2007,04/14/2006,09/2004 Pneumococcal conjugate 13 va lent (Prevnar 13, PCV13) 2mo and older 05/13/2016 Pneumococcal polysaccharide 23 valent (Pneumovax 23) 2yo and older 04/14/2006 SARS-COV-2 (COVID-19) Vaccin e, Unspecified 03/25/2022 Tdap Tetanus diptheria acell ular pertussis (Boostrix; Adacel) 7yo and older 10/08/2018,03/09/2007 Zoster recombinant (Shingrix ) 19yo and older 07/25/2020,06/24/2020,05/23/2020,04/18 Surgical History Surgery Date Site/Laterality Comments OTHER SURGICAL HISTORY Bilateral PROCEDURE: HISTORY OTHER; COMMENT: laser surgeries both eyes FOOT SURGERY 11/06/2021 Left PROCEDURE: HISTORICAL FOOT SURGERY; COMMENT: By Dr. Casper Dorantes: I&D of multiple fascia compartment; debridement of muscle and fascia d/t non healing wounds with infection Medical History Medical History Date Comments Type II or unspecified type diabetes mellitus without mention of complication, not stated as uncontrolled 05/26/2005 DX:Type II or unspecified ty pe diabetes mellitus without mention of complication, not stated as uncontrolled Other and unspecified hyperlipidemia 03/09/2007 DX:Other and unspecified hyperlipidemia Other infections involving b one diseases classified elsewhere, ankle and foot 03/09/2007 DX:Other infections involvin g bone diseases classified elsewhere, ankle and foot; COMMENT: Right second toe; 06/17 Type II diabetes mellitus, uncontrolled 08/27/2008 DX:Type II diabetes mellitus , uncontrolled DM (diabetes mellitus), type 2 with renal complications [place] [place] [facility] [place] 11/09/2021 DX:DM (diabetes mellitus), t ype 2 with renal complications ([facility]) Microalbuminuria 11/09/2021 DX:Microalbumin uria DM (diabetes mellitus), type 2 with neurological complications [place] [place] [facility] [place]) 05/13/2016 DX:DM (diabetes mellitus), t ype 2 with neurological complications ([facility]) Peripheral neuropathy 11/09/2021 DX:Periphe ral neuropathy Proliferative retinopathy du e to DM [place] [place] [facility] [place]) 05/10/2010 DX:Proliferative retinopath y due to DM ([facility]) DM type 2 causing eye diseas e ([facility] [place] [facility] [place]) 11/09/2021 DX:DM type 2 causing eye dis ease ([facility]) Family History Medical History Relation Name Comments Diabetes Aunt Alzheimer's disease Maternal Grandfather Colon cancer Maternal Grandfather Lung cancer Maternal Grandfather Coronary artery disease Neg Hx Hypertension Neg Hx Relation Name Status Comments Aunt Alive Maternal Grandfather Social History Tobacco Use Types Packs/Day Years Used Date Smoking Tobacco: Never Smokeless Tobacco: Never Tobacco Cessation:Counseling Given: Not Answered Alcohol Use Standard Drinks/Week Comments Never 0 (1 standard drink = 0.6 oz pur e alcohol) Sex and Gender Information Value Date Recorded Sex Assigned at Male 04/11/2024 10:16 AM EDT Legal Sex Male 8:35 AM EST Gender Identity Male 04/11/2024 10:16 AM EDT Sexual Orientation Straight 04/11/2024 10 :16 AM EDT Last Filed Vital Signs Vital Sign Reading Time Taken Comments Blood Pressure 110/57 06/02/2025 4:32 PM EST Pulse 91 06/02/2025 4:32 PM EST Temperature 36.6 C (97.9 F) 06/02/2025 4:32 PM EST Respiratory Rate - - Oxygen Saturation 97% 09/12/2024 8:32 AM EDT Inhaled Oxygen Concentration - - Weight 134 kg (295 lb) 06/02/2025 4:32 PM EST Height 188 cm (6' 2 ) 06/02/2025 4:32 PM EST Body Mass Index 37.88 06/02/2025 4:32 PM EST Plan of Treatment Upcoming Encounters Date Type Department Care Team (Late st Contact Info) Description 12/02/2025 4:30 PM EDT Office Visit Endocrinology - [place] [address] [place] [address] Toña Mariscal PA [address] [place] [address] Health Maintenance Due Date Last Done Comments Hepatitis B Vaccines (1 of 3 - 19+ 3-dose series) 01/14/1988 RSV Immunization Adult Patients (1 - Risk 50-74 years 1-dose series) 2019 Colorectal Cancer Screening: Colonoscopy 01/12/2021 2020 Pneumococcal Vaccine: 50+ Years (3 of 3 - PCV20 or PCV21) 05/13/2021 05/13/2016, 04/14/2006 HIV Screening 05/21/2022 Hepatitis C Screening 05/21/2022 Social Influencers of Health Screening 05/21/2022 Depression Screening 06/12/2024 Diabetes: Annual Retina Eye Exam 07/15/2025 07/15/2024 Diabetes: Blood Sugar Control Test (HGBA1C) 08/11/2025 02/11/2025, 09/13/2024, 04/15/2024, Additional history exists Diabetes: Annual Foot Exam 08/19/2025 08/19/2024 Diabetes: Annual Urine Albumin-Creatinine Ratio (uACR) 09/13/2025 09/13/2024, 01/11/2023 Diabetes: Annual GFR (Glomerular Filtration Rate) 09/13/2025 09/13/2024, 01/11/2023 DTaP,Tdap,and Td Vaccines (3 - Td or Tdap) 10/08/2028 10/08/2018, 03/09/2007 Cholesterol Screening (Lipid Panel) 09/13/2029 09/13/2024, 01/11/2023 Zoster Vaccines Completed 07/25/2020, 06/12, 05/23/2020, Additional history exists Influenza Vaccine Completed 02/24/2025, , 03/04/2023, Additional history exists COVID-19 Vaccine Completed 04/02/2025, , 03/17/2023, Additional history exists HIB Vaccines Aged Out No longer eligi ble based on patient's age to complete this topic HPV Vaccines Aged Out No longer eligi ble based on patient's age to complete this topic Hepatitis A Vaccines Aged Out No long er eligible based on patient's age to complete this topic IPV Vaccines Aged Out No longer eligi ble based on patient's age to complete this topic MMR Vaccines Aged Out No longer eligi ble based on patient's age to complete this topic Meningococcal ACWY Vaccine Aged Out N o longer eligible based on patient's age to complete this topic Meningococcal B Vaccine Aged Out No l onger eligible based on patient's age to complete this topic RSV Immunization Patients Under 20 months Aged Out No longer eligible based on patient's age to complete this topic Varicella Vaccines Aged Out No longer eligible based on patient's age to complete this topic Procedures Procedure Name Priority Date/Time Associated Diagnosis Comments HEMOGLOBIN A1C Routine 02/11/2025 1:32 PM EDT DM (diabetes mellitus), type 2 with neurological complications ([facility] V24, [facility] V28) MICROALBUMIN CREATININE URINE RATIO Routine 09/13/2024 11:51 AM EDT DM type 2 causing eye disease (CMS/HCC V24, CMS/HCC V28) BASIC METABOLIC PANEL Routine 09/13/2024 11:51 AM EDT DM type 2 causing eye disease ([facility] V24, [facility] V28) LIPID PANEL WITH REFLEX TO DIRECT LDL Routine 09/13/2024 11:51 AM EDT DM type 2 causing eye disease ([facility] V24, CMS/HCC V28) COLONOSCOPY Routine 2020 from Last 3 Months or Most Recently Relevant to Health Maintenance Results * Hemoglobin A1c (02/11/2025 1:32 PM EDT) [facility] Hemoglobin A1C 6.3 <6.5 % LAB CHEMISTRY METHOD 02/11/2025 10:21 PM EDT [facility] Mean Bld Glu Estim. 134 mg/dL LAB CHEMISTRY METHOD 02/11/2025 10:21 PM EDT [facility] Blood Venous blood specimen / Unknown Venipuncture / Unknown 02/11/2025 1:32 PM EDT 02/11/2025 1:32 PM EDT us Toña GRE[facility] LAB BLOOD ORDERABLES Final Result [facility] [address] [place] [address], [place] [phone] * Lipid panel with reflex to direct LDL (09/13/2024 11:51 AM EDT) [facility] Cholesterol 115 0 - 200 mg/dL LAB CHEMISTRY METHOD 09/13/2024 3:14 PM EDT [facility] Triglycerides 66 0 - 150 mg/dL LAB CHEMISTRY METHOD 09/13/2024 3:14 PM EDT [facility] HDL 45 >=40 mg/dL LAB CHEMISTRY METHOD 09/13/2024 3:14 PM EDT [facility] LDL Calculated 57 0 - 100 mg/dL LAB CHEMISTRY METHOD 09/13/2024 3:14 PM EDT [facility] VLDL Cholesterol Ivan 13.2 mg/dL LAB CHEMISTRY METHOD 09/13/2024 3:14 PM EDT [facility] Non HDL Chol. (LDL+VLDL) 70 <145 mg/dL LAB CHEMISTRY METHOD 09/13/2024 3:14 PM EDT [facility] Chol/HDL Ratio 2.6 0.0 - 4.4 LAB CHEMISTRY METHOD 09/13/2024 3:14 PM EDT [facility] Blood Venous blood specimen / Unknown Venipuncture / Unknown 09/13/2024 11:51 AM EDT 09/13/2024 11:51 AM EDT [facility] LAB BLOOD ORDERABLES Final Result Performing Organization Address [facility]/ZIP Co de Phone Number [facility] [address] [place] [address], [place] [phone] * Microalbumin creatinine urine ratio (09/13/2024 11:51 AM EDT) Creatinine, Urine 271.0 mg/dL LAB CHEMISTRY METHOD 09/13/2024 3:26 PM EDT [facility] Microalb, Ur 24.9 0.0 - 29.0 mg/L LAB CHEMISTRY METHOD 09/13/2024 3:26 PM EDT [facility] Microalb/Creat Ratio 9 <30 mg/g creat LAB CHEMISTRY METHOD 09/13/2024 3:26 PM EDT [facility] Urine Urine specimen from urethra / Unknown Non-blood Collection / Unknown 09/13/2024 11:51 AM EDT 09/13/2024 11:51 AM EDT [facility] LAB URINE ORDERABLES Final Result Performing Organization Address City/[facility]/ZIP Co de Phone Number [facility] [address] [place] [address], [place] [phone] * Basic metabolic panel (09/13/2024 11:51 AM EDT) Sodium 140 133 - 145 mmol/L LAB CHEMISTRY METHOD 09/13/2024 3:14 PM EDT [facility] Potassium 4.0 3.5 - 5.5 mmol/L LAB CHEMISTRY METHOD 09/13/2024 3:14 PM [facility] Chloride 107 96 - 110 mmol/L LAB CHEMISTRY METHOD 09/13/2024 3:14 PM [facility] CO2 25 21 - 32 mmol/L LAB CHEMISTRY METHOD 09/13/2024 3:14 PM [facility] Anion Gap 8 3 - 11 LAB CHEMISTRY METHOD 09/13/2024 3:14 PM [facility] Glucose 79 70 - 100 mg/dL LAB CHEMISTRY METHOD 09/13/2024 3:14 PM [facility] BUN 14 5 - 25 mg/dL LAB CHEMISTRY METHOD 09/13/2024 3:14 PM [facility] Creatinine 0.75 0.70 - 1.30 mg/dL LAB CHEMISTRY METHOD 09/13/2024 3:14 PM [facility] eGFR 107 >=60 mL/min/1. 73m2 LAB CHEMISTRY METHOD 09/13/2024 3:14 PM [facility] Comment:Calculation based on the Chronic Kidney Disease Epidemiology Collaboration (CKD-EPI) equation refit without adjustment for race. BUN/Creatinine Ratio 18.7 LAB CHEMISTRY METHOD 09/13/2024 3:14 PM [facility] Calcium 8.7 8.5 - 10.5 mg/dL LAB CHEMISTRY METHOD 09/13/2024 3:14 PM [facility] Blood Venous blood specimen / Unknown Venipuncture / Unknown 09/13/2024 11:51 AM EDT 09/13/2024 11:51 AM EDT us To[facility] LAB BLOOD ORDERABLES Final Result [facility] [address] [place] [address], * Hm Colonoscopy (2020) HM Colonoscopy Abstracted, no interpretation Anatomical Region Laterality Modality Other us Historical Provider HEALTH MAINTENANCE Final Result from Last 3 Months or Most Recently Relevant to Health Maintenance Insurance [facility] Care Teams Metallurgical Lab Technician Relationship Specialty Start Date End Date Davey Navarro MD [id number] [place] [address] PCP - General Internal Medicine 09/12/24
--- OUTSIDE RECORDS SUMMARY | 2025-06-11 10:48 | XMS_ITS | Clinical Summary ---
Author Organization [facility] Address [address] [place] [address] Care Team Providers Care Waste Examiner Name Role Phone RamonAngel plummerncer Unavailable Social History Tobacco Use Types Packs/Day Years Used Date Smoking Tobacco: Never Assessed Sex and Gender Information Value Date Recorded Sex Assigned at Not on file Legal Sex Male 12:45 AM EST Gender Identity Unable to obtain 07/28/2023 12:4 5 AM EST Sexual Orientation Not on file Plan of Treatment Health Maintenance Due Date Last Done Comments Blood Pressure 1969 Lipid Panel 1969 PSA 1969 Prostate Cancer Screening 1969 SDM 1969 Depression Screening 1981 Hepatitis C Screening 1987 DTaP,Tdap,and Td Vaccines (1 - Tdap) 01/14/1988 CT Colonography 2014 Colonoscopy 2014 Colorectal Cancer Screening 2014 FIT 2014 FOBT 2014 Multitarget Stool DNA (Cologuard) 2014 Sigmoidoscopy 2014 Pneumococcal Vaccine: 50+ Ye ars (1 of 1 - PCV) 2019 Zoster Vaccine (1 of 2) 2019 COVID-19 Vaccine ( - 2024-2 6 season) 2025 Influenza Vaccine (#1) 2025 Meningococcal B Vaccines Aged Out No longer eligible based on patient's age to complete this topic Meningococcal Vaccines Aged Out No lo nger eligible based on patient's age to complete this topic Care Teams Waste Examiner Relationship Specialty Start Date End Date Davey Navarro [address] [place] [address] PCP - Insurance Assigned PCP 11/10/22
[2025-06-11 11:17] LABS: Digoxin 0.2 ng/mL (0.8-2.0)
== END ==
LOC: HO.CARD 09:57
PROVIDERS: PCP Internal Medicine; Visit Provider Internal Medicine Cardiovascular Disease
DX: I48.20 Chronic atrial fibrillation, unspecified (principal)
CPT/HCPCS: 36415; 80162; 93306; Q9957

== ENCOUNTER → 2025-06-11 09:59 | Outpatient (BNV) | payer BC, SELFPAY | PROVIDERS: PCP Internal Medicine; Visit Provider Internal Medicine | DX: I48.20 Chronic atrial fibrillation, unspecified (principal) | CPT/HCPCS: 93306 ==